=== PATIENT | male | born 1940 | race Two or more races ===

== ENCOUNTER 2018-01-18 07:08 | Emergency (ER) | payer MEDICARE ==
[~2018-01-18] VITALS: Ht 167.6 cm; Wt 86.0 kg
[2018-01-18] MEDS ORDERED: BACITRACIN ZINC OINT UDPKT TOP ONE (08:00)
[2018-01-18] MEDS ORDERED: LIDOCAINE HCL 1% 20ML VIAL (Pyxis) INJ MC ONE (08:00)
[2018-01-18] MEDS ORDERED: TETANUS, DIPHTHERIA, PERTUSSIS VAC/PF 0.5ML (>7YR OLD) IM ONE (08:00)
[2018-01-18] MEDS ORDERED: LIDOCAINE HCL/PF 1% 10 MG/ML 5ML VIAL IJ SCH (08:45)
[2018-01-18 10:38] VITALS: BP 132/70
== END 2018-01-18 10:39 | disposition home or self-care (01) ==
LOC: ER 07:42
DX: S61.411A Laceration without foreign body of right hand, initial encounter (principal); S60.221A Contusion of right hand, initial encounter; S60.222A Contusion of left hand, initial encounter; E11.9 Type 2 diabetes mellitus without complications; I10 Essential (primary) hypertension; W10.0XXA Fall (on)(from) escalator, initial encounter; Z23 Encounter for immunization
CPT/HCPCS: 12002; 73130; 90471; 90715; 99284; J3490; A4565